=== PATIENT | female | born 1975 | race Caucasian/White ===

== ENCOUNTER 2016-11-20 06:05 | Day surgery (SDC) | payer BC ==
[~2016-11-20] VITALS: Ht 166.4 cm; Wt 84.5 kg
[2016-11-20] VITALS (490 sets, daily range): BP systolic 118–156; BP diastolic 59–99; PULSE 61–96; TEMP 97.5–98.3; O2SAT 93–100
[2016-11-20 06:29] LABS: HEMATOCRIT 43.3 % (37.0-47.0); HEMOGLOBIN 15.4 g/dl (12.5-16.0); MEAN CELL VOLUME 95 fl (80.0-100.0); MEAN CORPUSCULAR HEMOGLOBIN 34 pg (27.0-31.0); MEAN CORPUSCULAR HGB CONC 36 g/dl (33.0-37.0); PLATELET COUNT 235 K/mm3 (130-400); RED BLOOD COUNT 4.58 M/mm3 (4.10-5.30); REDCELL DISTRIBUTION WIDTH-CV 11.1 % (11.5-14.5); WHITE BLOOD COUNT 7.3 K/mm3 (4.8-10.8)
[2016-11-20 06:44] LABS: CALCIUM 9.6 mg/dL (8.4-10.2); CREATININE, serum 0.81 mg/dL (0.52-1.25); POTASSIUM 4.1 mmol/L (3.4-5.0)
[2016-11-20] MEDS ORDERED: NITROSTAT0.4 MG/TAB SL (06:52)
[2016-11-20] MEDS ORDERED: LOPRESSOR 550 MG/TAB PO (06:53)
[2016-11-20] MEDS ORDERED: IBU800 M1 PO (06:53)
[2016-11-20] MEDS ORDERED: ASPIRIN 81M81 MG/TA2 PO (06:56)
[2016-11-20] MEDS ORDERED: COLACE 100100 MG/CAP PO (06:56)
[2016-11-20] MEDS ORDERED: NATURE'S BLE1000 MCG PO (06:57)
[2016-11-20] MEDS ORDERED: CO Q-1010 M1 PO (06:58)
[2016-11-20] MEDS ORDERED: SENOKOT8.6 MG PO (06:59)
[2016-11-20 07:05] LABS: PROTHROMBIN TIME 10.5 SECONDS (9.7-12.8)
[2016-11-21] VITALS (459 sets, daily range): BP systolic 120–137; BP diastolic 78–87; PULSE 57–82; TEMP 97–98.3; O2SAT 93–99
[2016-11-21 06:05] LABS: HEMATOCRIT 40.5 % (37.0-47.0); HEMOGLOBIN 14.3 g/dl (12.5-16.0); MEAN CELL VOLUME 96 fl (80.0-100.0); MEAN CORPUSCULAR HEMOGLOBIN 34 pg (27.0-31.0); MEAN CORPUSCULAR HGB CONC 35 g/dl (33.0-37.0); MEAN PLATELET VOLUME 9.1 fl (7.4-10.4); PLATELET COUNT 202 K/mm3 (130-400); RED BLOOD COUNT 4.24 M/mm3 (4.10-5.30); REDCELL DISTRIBUTION WIDTH-CV 11.2 % (11.5-14.5); WHITE BLOOD COUNT 6.1 K/mm3 (4.8-10.8)
[2016-11-21 06:20] LABS: ANION GAP 8 mmol/L (7-16); BLOOD UREA NITROGEN 13 mg/dL (7-17); CALCIUM 9.4 mg/dL (8.4-10.2); CARBON DIOXIDE 26 mmol/L (22-30); CHLORIDE 103 mmol/L (98-107); CREATININE, serum 0.71 mg/dL (0.52-1.25); GLUCOSE 98 mg/dL (74-106); POTASSIUM 3.7 mmol/L (3.4-5.0); SODIUM 137 mmol/L (137-145)
[2016-11-21 06:22] LABS: CREATINE KINASE < 20 U/L (30-135)
[2016-11-21] MEDS ORDERED: TOPROL XL 50MG50 MG PO (09:55)
[2016-11-21] MEDS ORDERED: LIPITOR 40MG TA40 MG PO (09:58)
[2016-11-21] MEDS ORDERED: LOVAZA1 GM PO (09:59)
[2016-11-21] MEDS ORDERED: BRILINTA90 MG PO (09:59)
== END 2016-11-21 10:20 | disposition home or self-care (01) ==
LOC: EUO 06:05 → IMCU 16:00 → COL.RAD 11-21 10:00 → EUO 11-21 10:20
PROVIDERS: Internal Medicine Cardiovascular Disease
DX: I25.10 Atherosclerotic heart disease of native coronary artery without angina pectoris (principal); F17.200 Nicotine dependence, unspecified, uncomplicated; R07.89 Other chest pain; R94.39 Abnormal result of other cardiovascular function study
CPT/HCPCS: OP; C1769; C1874; C1887; C1894; C9600; J0583; J1644; J2250; J3010; Q9967